=== PATIENT | male | born 1960 | race Caucasian/White ===

== ENCOUNTER → 2023-09-06 09:59 | Outpatient (REF) | payer BC, SELFPAY ==
[2023-09-06 11:45] LABS: % Basophils 0.9 % (0-2); % Eosinophils 1.7 % (0-6); % Immature Granulocytes 0.2 % (0-0.5); % Lymphocytes 28.5 % (20.5-51.1); % Monocytes 9.2 % (1.7-9.3); % Neutrophils 59.5 % (42.2-75.2); Absolute Basophils 0.1 10^3/uL (0-0.2); Absolute Eosinophils 0.1 10^3/uL (0-0.7); Absolute Lymphocytes 1.5 10^3/uL (1.2-3.4); Absolute Monocytes 0.5 10^3/uL (0.1-0.6); Absolute Neutrophils 3.2 10^3/uL (1.4-6.5); Hematocrit 39.2 % (39.0-52.0); Hemoglobin 13.3 g/dL (13.0-18.0); Mean Corp Hgb Conc. 33.9 g/dL (33.0-37.0); Mean Corpuscular Hgb 31.3 pg (27.0-31.0); Mean Corpuscular Volume 92.2 fL (80.0-94.0); Mean Platelet Volume 9.8 fL (7.4-10.4); Nucleated Red Blood Cells % 0 % (-); Platelet Count 305 10^3/uL (130-400); Red Blood Cell Count 4.25 10^6/uL (4.70-6.10); Red Cell Dist. Width 13.5 % (11.5-14.5); White Blood Cell Count 5.4 10^3/uL (4.8-10.8)
[2023-09-06 11:46] LABS: Blood Urea Nitrogen 18 mg/dl (9-20); Carbon Dioxide 26 mmol/L (22-30); Chloride 108 mmol/L (98-107); Glucose 98 mg/dl (70-99); Potassium 3.7 mmol/L (3.5-5.1); Sodium 138 mmol/L (135-145); eGFR > 60.00
== END ==
LOC: HWLAB 09:59
PROVIDERS: ATTENDING PHYSICIAN Specialist; FAMILY PHYSICIAN Family Medicine
DX: Z01.818 Encounter for other preprocedural examination (principal)
CPT/HCPCS: 36415; 80048; 85025; 93005

== ENCOUNTER 2024-02-02 01:33 | Emergency (ER) | payer BC, SELFPAY ==
[2024-02-02 01:35] VITALS: BP 141/81
--- NOTE | 2024-02-02 01:45 | ED.GENMED ---
History of Present Illness
General
Chief Complaint: Cold/Flu/URI Symptoms
Time Seen by Provider: 02/02/24 01:45
History of Present Illness
History of Present Illness:
HPI: The patient presents due to concerns related to COVID. 3 days ago he had a general unwell feeling and 2 days ago he started having some fevers and chills. He tested positive for COVID-19 his primary care doctor placed him on Paxlovid. This
evening he had 2 episodes where he felt that he could not breathe as he was trying to sleep. After the second episode, he came in here for further evaluation. He currently has no significant complaints other than questioning what happened earlier.
EXAM:
GENERAL: Well appearing in no distress
HEENT: Moist oral mucosa
CARDIOVASCULAR: No murmurs, normal heart rate, regular rhythm, No chest wall tenderness
PULMONARY: No respiratory distress, breath sounds are clear and equal, there is no wheeze
ABDOMEN: Soft with no peritoneal signs, no tenderness
NEUROLOGIC: Excellent strength all extremities, no coordination deficits
PSYCHIATRIC: Appropriate mental status, normal insight and judgement
EXTREMITIES: Nontender, no edema, moves all extremities equally
SKIN: No rash, no lesions
TIME OF INITIAL ENCOUNTER: 1:40 AM
NUMBER AND COMPLEXITY OF PROBLEMS ADDRESSED AT THE ENCOUNTER
� Chronic conditions affecting care: Ends high blood pressure, asthma
� Acute Exacerbation and/or Progression of Chronic Illness: This is an acute problem
� Differential Diagnosis includes: Asthma exacerbation, viral syndrome, COVID-pneumonia, bacterial pneumonia, ROGER
AMOUNT AND/OR COMPLEXITY OF DATA TO BE REVIEWED AND ANALYZED
� I performed an independent evaluation of and my interpretation is:
EKG:
CT:
X-rays: I personally viewed chest x-ray and see no acute abnormality
Laboratory Studies:
Other:
� Review of other/old records: I reviewed records, the patient had colonoscopy related to GI bleed November 2022
� Clinical information was obtained by an independent historian: I spoke to at bedside�he also reports some concern for the possibility of ROGER
� Prescriptions/Medications Considered but not given:
� Further testing considered but not performed:
RISK OF COMPLICATIONS AND/OR MORBIDITY OR MORTALITY OF PATIENT MANAGEMENT
� Social determinants of health affecting care: Lives at home
� Discussion with other providers:
� Escalation of care including admission/observation vs risk of discharge considered: The patient is currently very well-appearing with unremarkable vital signs and clear lungs. He is in no respiratory distress. Earlier he had
episodes where he felt like he could not breathe and was almost gasping for air. However these were self-limited. Will try steroid symptoms could be related to inflammatory have also given the contact information for local video camera operator to
consider sleep study.
Phy Exam
Physical Exam
Physical Exam:
See HPI
Course
Orders/Labs/Results
Orders:
Orders
02/02/24 01:40
CXR2 [CR Chest - 2 Views ] Urgent
Comment:
Reason For Exam: difficulty breathing.
02/02/24 02:16
Prednisone [Deltasone] 50 mg PO NOW STA
Vital Signs
Initial and Last Documented VS:
Initial Vital Signs
Temp Pulse Resp BP Pulse Ox
98.4 F 65 18 141/81 97
02/02/24 01:35 02/02/24 01:35 02/02/24 01:35 02/02/24 01:35 02/02/24 01:35
Last Documented Vital Signs
Temp Pulse Resp BP Pulse Ox
98.4 F 65 18 141/81 97
02/02/24 01:35 02/02/24 01:35 02/02/24 01:35 02/02/24 01:35 02/02/24 01:35
*Critical Care Note
Total Time (30-74mins, 75-104mins- exclusive of procedures): Not Applicable
ED Attending Note
-
Portions of this chart may have been created with voice recognition software.� Occasional wrong word or��sound alike� substitutions may have occurred due to the inherent limitations of voice recognition software.
Discharge Plan
Departure
Patient Disposition: Home (Routine Discharge)
Date of Disposition: 02/02/24
Time of Disposition: 02:17
Patient with high blood pressure during this ER visit?: Yes
Discharge Problem:
COVID-19
Instructions: COVID-19 ED, BLOOD PRESSURE
Prescriptions:
New
prednisone 50 mg tablet
50 mg PO DAILY Qty: 4 0RF
No Action
multivitamin 1 EACH tablet
1 ea PO DAILY
aspirin [Rodrick Low Dose Aspirin] 81 MG tablet,delayed release (DR/EC)
81 mg PO DAILY
amlodipine 10 MG tablet
10 mg PO DAILY
albuterol sulfate 1 PUFF HFA aerosol inhaler
2 puff inhalation R Q4HPRN PRN (Reason: SOB)
omega-3 acid ethyl esters 1 GM capsule
4 gm PO DAILY
Qvar 80 mcg/actuation
2 puff inhalation DAILY
oxycodone 5 MG tablet
5 mg PO Q4HPRN PRN (Reason: breakthrough/severe pain) Qty: 14 0RF
Referrals:
Reginaldo Colby MD [Family Provider] -
Gus May MD [Active] - Follow up in 2-3 days
Activity Restrictions/Additional Instructions:
Will give a dose of steroids. I sent a prescription to your pharmacy for additional steroids over the next few days. Return here if worse or other concerns. I have also given you the contact information for a local industrial training specialist,
[place].
Interventions
Interventions:
*Risk Screen - Suicide Last Done: 02/02/24 01:39
*General Assessment Last Done: 02/02/24 01:41
*Neglect/Abuse Screening Last Done: 02/02/24 01:40
ED- Fall Risk Assessment Last Done: 02/02/24 01:42
*ED COVID-19 Vaccine History Last Done: 02/02/24 01:41
Discharge Date and Time
Print Language: CAPE [place]DE[place]
[2024-02-02] MEDS: DELTASONE 50 MG PO (02:31)
[2024-02-02 02:33] VITALS: BP 117/72
== END 2024-02-02 02:35 | disposition home or self-care (01) ==
LOC: EMR 01:33
PROVIDERS: EMERGENCY PHYSICIAN Emergency Medicine; FAMILY PHYSICIAN Family Medicine
DX: U07.1 COVID-19 (principal); R03.0 Elevated blood-pressure reading, without diagnosis of hypertension
CPT/HCPCS: 99283; 71046

== ENCOUNTER → 2024-03-30 09:41 | Outpatient (REF) | payer BC, SELFPAY | LOC: DHSLP 09:41 | PROVIDERS: ATTENDING PHYSICIAN Internal Medicine Critical Care Medicine; FAMILY PHYSICIAN Family Medicine | DX: G47.33 Obstructive sleep apnea (adult) (pediatric) (principal) | CPT/HCPCS: 95800 ==

== ENCOUNTER → 2024-05-10 13:27 | Outpatient (REF) | payer BC, SELFPAY | LOC: HWRAD 13:27 | PROVIDERS: ATTENDING PHYSICIAN Family Medicine | DX: M48.07 Spinal stenosis, lumbosacral region (principal); R29.898 Other symptoms and signs involving the musculoskeletal system; R29.818 Other symptoms and signs involving the nervous system | CPT/HCPCS: 72110 ==

== ENCOUNTER → 2024-06-17 06:30 | Outpatient (REF) | payer BC, SELFPAY | LOC: MRI 3T 06:30 | PROVIDERS: ATTENDING PHYSICIAN Family Medicine | DX: M48.07 Spinal stenosis, lumbosacral region (principal); R29.898 Other symptoms and signs involving the musculoskeletal system; R29.818 Other symptoms and signs involving the nervous system | CPT/HCPCS: 72148 ==